=== PATIENT | female | born 1965 | race Hispanic/Latino ===

== ENCOUNTER 2016-11-12 08:35 | Observation (INO) | payer BC ==
[2016-11-12] MEDS ORDERED: Famotidine 20mg/50ml 20 MG/50 ML BAG IV STA (09:17)
[2016-11-12] MEDS ORDERED: Sodium Chloride 0.9% 1,000 ML IV STA ×2 (09:17→12:09)
--- NOTE | 2016-11-12 09:23 | ED PDOC ---
Arrival/HPI - General Chief Complaint: Dizziness/Lightheaded Time Seen by Provider: 11/12/16 09:17 Historian: Patient - History of Present Illness Narrative History of Present Illness (Text): 11/12/16 09:17 Daniela Yu is a 51 year old female, who denies any past medical history and family medical history, who presents to the emergency department complaining of 1 day duration of nausea, diaphoresis, and felling lightheaded which began this morning. Patient denies any chest pain, shortness of breath, dyspnea on exertion, or any other complaints at this time. Time/Duration: 1-3 hours Symptom Onset: Gradual Symptom Course: Unchanged Activities at Onset: Rest Context: Home Past Medical History - Provider Review Nursing Documentation Reviewed: Yes - Psychiatric Hx Substance Use: No Family/Social History - Physician Review Nursing Documentation Reviewed: Yes Family/Social History: No Known Family HX Smoking Status: Never Smoked Hx Alcohol Use: Yes Frequency of alcohol use: Socially Hx Substance Use: No Allergies/Home Meds Allergies/Adverse Reactions: Allergies Penicillins Allergy (Verified 11/12/16 08:44) ANAPHYLAXIS Physical Exam - Physical Exam Narrative Physical Exam (Text): - Review of Systems Constitutional: lightheaded. absent: Fatigue, Weight Change, Fevers Eyes: Normal ENT: Normal Respiratory: Normal absent: SOB, Cough, Sputum Cardiovascular: Normal absent: Chest pain, Palpitations, Syncope Gastrointestinal: Nausea absent: Abdominal pain, Diarrhea, Vomiting Genitourinary: Normal. absent: Dysuria, Frequency, Hematuria Musculoskeletal: Normal. absent: Arthralgias, Back Pain, Neck Pain Skin: Normal Neurological: Normal absent: Focal Weakness Endocrine: Normal Hemo/Lymphatic: Normal Psychiatric: Normal - Physical exam Patient appears age appropriate, speaking full sentences without difficulty. - Systems Exam Head: Present: Atraumatic, Normocephalic Pupils: Present: PERRL Extraocular Muscles: Present: EOMI Conjunctiva: Present: Normal Mouth: Present: Moist Mucous Membranes Neck: Present: Normal Range of Motion. No: MIDLINE TENDERNESS, Paraspinal Tenderness Respiratory/Chest: Present: Clear to Auscultation, Good Air Exchange. No: Respiratory Distress, Accessory Muscle Use, Tachypnic Cardiovascular: Present: Regular Rate and Rhythm, Normal S1, S2, Peripheral Pulses Present. No: Murmurs Abdomen: Present: Normal Bowel Sounds, No: Tenderness, Peritoneal Signs, Rebound, Guarding, Distention Back: Present: Normal Inspection. No: Midline Tenderness, Paraspinal Tenderness Upper Extremity: Present: Normal Inspection. No: Cyanosis, Edema Lower Extremity: Present: Normal Inspection. No: Edema Neurological: Present: GCS=15, Speech Normal, cranial nerves II through XII fully intact with no cerebellar abnormality, neuro-sensory fully intact. No focal neurological deficits. Skin: Present: Warm, Dry, Normal Color. No: Rashes Lymphatic: Present: OX3, NI, NC Psychiatric: Present: Alert, Oriented x 3, Normal Insight, Normal Concentration Vital Signs Reviewed: Yes Vital Signs Temp Pulse Resp BP Pulse Ox 11/12/16 12:11 97.9 F 61 16 118/64 99 11/12/16 08:44 98.4 F 63 16 138/76 99 Temperature: Afebrile Blood Pressure: Normal Pulse: Regular Respiratory Rate: Normal Appearance: Positive for: Well-Appearing, Non-Toxic, Comfortable Pain Distress: None Mental Status: Positive for: Alert and Oriented X 3 Medical Decision Making - Lab Interpretations Lab Results: 11/12/16 10:00 11/12/16 10:00 Lab Results 11/12/16 10:00: Sodium 142, Potassium 4.1, Chloride 107, Carbon Dioxide 25, Anion Gap 14, BUN 16, Creatinine 0.6, Est GFR ( Amer) > 60, Est GFR (Non- Af Amer) > 60, Random Glucose 109, Calcium 9.4, Total Bilirubin 1.1, AST 25, ALT 40, Alkaline Phosphatase 59, Lactate Dehydrogenase 378, Total Creatine Kinase 45, Troponin I < 0.01, Total Protein 7.4, Albumin 4.4, Globulin 3.0, Albumin/Globulin Ratio 1.5 11/12/16 10:00: PT 10.9, INR 1.01, APTT 25.2 11/12/16 10:00: WBC 6.4, RBC 5.32, Hgb 13.5, Hct 40.0, MCV 75.2 L, MCH 25.4, MCHC 33.8, RDW 14.4, Plt Count 267, MPV 11.1 H, Gran % 77.9 H, Lymph % (Auto) 15.7 L, Carver % (Auto) 4.4, Eos % (Auto) 1.7, Baso % (Auto) 0.3, Gran # 4.95, Lymph # 1.0 L, Carver # 0.3, Eos # 0.1, Baso # 0.02 I have reviewed the lab results: Yes - RAD Interpretation Radiology Orders: 11/12/16 09:18 HEAD W/O CONTRAST [CT] Stat 11/12/16 09:19 CHEST PORTABLE [RAD] Stat - Medication Orders Current Medication Orders: Discontinued Medications Aspirin (Aspirin Chewable) 324 mg PO STAT STA Stop: 11/12/16 09:18 Last Admin: 11/12/16 10:12 Dose: 324 mg Famotidine (Pepcid 20mg/50ml Premix) 20 mg in 50 mls @ 100 mls/hr IV STAT STA Stop: 11/12/16 09:46 Last Admin: 11/12/16 10:11 Dose: 100 mls/hr Sodium Chloride (Sodium Chloride 0.9%) 1,000 mls @ 1,000 mls/hr IV .Q1H STA Stop: 11/12/16 10:16 Last Admin: 11/12/16 10:12 Dose: 1,000 mls/hr Sodium Chloride (Sodium Chloride 0.9%) 1,000 mls @ 1,000 mls/hr IV .Q1H STA Stop: 11/12/16 13:08 Last Admin: 11/12/16 13:25 Dose: 1,000 mls/hr Meclizine HCl (Antivert) 50 mg PO STAT STA Stop: 11/12/16 12:44 Last Admin: 11/12/16 13:24 Dose: 50 mg Ondansetron HCl (Zofran Inj) 4 mg IVP STAT STA Stop: 11/12/16 09:18 Last Admin: 11/12/16 10:11 Dose: 4 mg Ondansetron HCl (Zofran Inj) 4 mg IVP STAT STA Stop: 11/12/16 12:10 Last Admin: 11/12/16 13:24 Dose: 4 mg ED OBSERVATION Discharge: Yes Date of observation admission: 11/12/16 Time of observation admission: 09:00 - Observation admission statement Patient is being placed in observation because:: chest pain - Goals of Observation Goals of observation are:: Plan: -- repeat troponins -- EKG -- Chest X-ray -- Head CT w/o contrast -- Urinalysis -- Labs -- Aspirin, Zofran, Pepcid, and IV Fluids -- Reassess and disposition - Progress Note Progress Note: Impression: 51 year old female complaining of 1 day duration nausea, diaphoresis, and feeling lightheaded which began this morning. Differential Diagnosis included but are not limited to: ACS vs. atypical chest pain presentation vs. dehydration vs. gastritis EKG shows NSR at [address]-segment elevations, normal intervals. Interpreted by me. Chest X-ray read and interpreted by me, which shows no cardiomegaly, no pneumothorax, no effusions. pt's HEART score low. 2 sets of cardiac enzymes and an EKG ordered I had a long discussion with patient that our initial evaluation has not shown evidence of a heart attack. Patient verbalized understanding that even if these tests are normal, symptoms may still be a warning sign of a future heart attack and it is very important for patient to arrange outpatient cardiology follow up Patient was agreeable to observation in the emergency room, and understood that this will prolong the length of stay 11/12/16 11:21 CT HEAD WITHOUT CONTRAST: Dictator : Edwin Han MD FINDINGS: HEMORRHAGE:No intracranial hemorrhage. BRAIN:No mass effect or edema. No atrophy or chronic microvascular ischemic changes. VENTRICLES:Unremarkable. No hydrocephalus. CALVARIUM:Unremarkable. PARANASAL SINUSES:Unremarkable as visualized. No significant inflammatory changes. MASTOID AIR CELLS:Unremarkable as visualized. No inflammatory changes. OTHER FINDINGS:None. IMPRESSION: No acute findings 11/12/16 12:44 On reevaluation, patient states that she feels better but is lightheaded and dizzy every time she closes her eyes and lies down. hints exam is negative, no focal neurological deficits. Meclizine ordered as this also may be vertigo. 11/12/16 14:18 Had a long and extensive d/w patient about f/u with a care companion for further workup and testing as well as a primary physician. Explained to patient that although his ER w/u did not show any acute abnormalities, patient still needs further testing which may include an echo, stress test, cardiac cath, or others. repeat EKG with no evolving changes pt states she feels much better after meclizine and her symptoms resolved Pt states she understands to return to the ER right away for new or worsening symptoms or for inability to f/u with PMD or specialist as instructed. Patient states that she fully agrees with and understands discharge instructions. States that she agrees with the plan and disposition. Verbalized and repeated discharge instructions and plan. I have given the patient opportunity to ask any additional questions. EKG shows NSR at [address]-segment elevations, normal intervals. No evolving changes. Interpreted by me. - Scribe Statement The provider has reviewed the documentation as recorded by the Jeremiibaudie Hill Provider Scribe Attestation: All medical record entries made by the Scribe were at my direction and personally dictated by me. I have reviewed the chart and agree that the record accurately reflects my personal performance of the history, physical exam, medical decision making, and the department course for this patient. I have also personally directed, reviewed, and agree with the discharge instructions and disposition. Disposition/Present on Arrival - Present on Arrival Any Indicators Present on Arrival: No History of DVT/PE: No History of Uncontrolled Diabetes: No Urinary Catheter: No History of Decub. Ulcer: No History Surgical Site Infection Following: None - Disposition Have Diagnosis and Disposition been Completed?: Yes Diagnosis: Dizziness Disposition: HOME/ ROUTINE Disposition Time: 09:00 Patient Problems: Current Active Problems Problem Status Onset Dizziness Acute Condition: GOOD
[2016-11-12 10:24] LABS: BASO # 0.02 K/mm3 (0.0-2.0); BASO % 0.3 % (0.0-3.0); EOS # 0.1 (0.0-0.7); EOS % 1.7 % (1.5-5.0); GRAN # 4.95 (1.4-6.5); GRAN % 77.9 % (50.0-68.0); LYMPH % 15.7 % (22.0-35.0); MEAN CELL VOLUME 75.2 fl (80.0-105.0); MEAN CORPUSCULAR HEMOGLOBIN 25.4 pg (25.0-35.0); MEAN CORPUSCULAR HGB CONC 33.8 g/dl (31.0-37.0); MEAN PLATELET VOLUME 11.1 fl (7.0-11.0); MONO # 0.3 (0.1-0.6); MONO % 4.4 % (1.0-6.0); RED CELL DISTRIBUTION WIDTH 14.4 % (11.5-14.5); WHITE BLOOD COUNT 6.4 10^3/ul (4.5-11.0)
[2016-11-12 10:31] LABS: ALB/GLOB RATIO 1.5 (1.1-1.8); ALKALINE PHOSPHATASE 59 U/L (38-133); ALT/SGPT 40 U/L (7-56); AST/SGOT 25 U/L (15-39); BILIRUBIN,TOTAL 1.1 mg/dL (0.2-1.3); BLOOD UREA NITROGEN 16 mg/dL (7-21); CALCIUM 9.4 mg/dL (8.4-10.5); CARBON DIOXIDE 25 mmol/L (21-33); CHLORIDE 107 mmol/L (98-107); GFR AFRICAN-AMERICAN > 60; GLUCOSE,RANDOM 109 mg/dL (70-110); POTASSIUM 4.1 mmol/L (3.6-5.0); SODIUM 142 mmol/L (132-148); TOTAL PROTEIN 7.4 g/dL (5.8-8.3)
[2016-11-12 10:40] LABS: INR 1.01 (0.93-1.08); PARTIAL THROMBOPLASTIN TIME 25.2 Seconds (23.7-30.8)
[2016-11-12 10:44] LABS: TROPONIN I < 0.01 ng/mL
--- NOTE | 2016-11-12 11:03 | CT ---
PROCEDURE: CT HEAD WITHOUT CONTRAST. HISTORY: lightheaded COMPARISON: None available. TECHNIQUE: Axial computed tomography images were obtained through the head/brain without intravenous contrast. Radiation dose: Total exam DLP = 769 mGy-cm. This CT exam was performed using one or more of the following dose reduction techniques: Automated exposure control, adjustment of the mA and/or kV according to patient size, and/or use of iterative reconstruction technique. FINDINGS: HEMORRHAGE: No intracranial hemorrhage. BRAIN: No mass effect or edema. No atrophy or chronic microvascular ischemic changes. VENTRICLES: Unremarkable. No hydrocephalus. CALVARIUM: Unremarkable. PARANASAL SINUSES: Unremarkable as visualized. No significant inflammatory changes. MASTOID AIR CELLS: Unremarkable as visualized. No inflammatory changes. OTHER FINDINGS: None. IMPRESSION: No acute findings
[2016-11-12 12:11] VITALS: TEMP 97.9
[2016-11-12 13:54] LABS: TROPONIN I < 0.01 ng/mL
--- NOTE | 2016-11-12 15:03 | RAD ---
HISTORY: nausea COMPARISON: No prior. FINDINGS: LUNGS: No active pulmonary disease. PLEURA: No significant pleural effusion identified, no pneumothorax apparent. CARDIOVASCULAR: Probable top-normal heart size OSSEOUS STRUCTURES: No significant abnormalities. VISUALIZED UPPER ABDOMEN: Normal. OTHER FINDINGS: None. IMPRESSION: No active disease. No infiltrate
[2016-11-12 17:10] VITALS: BP 120/64; PULSE 69; RESP 18; O2SAT 98
--- NOTE | 2016-11-12 19:09 | CARD ---
APPROVED REPORT EKG Measurement Heart [id number] <Conclusion> Normal sinus rhythm Normal ECG
--- NOTE | 2016-11-12 19:15 | CARD ---
APPROVED REPORT EKG Measurement Heart [id number] <Conclusion> Normal sinus rhythm Normal ECG
== END 2016-11-12 14:21 | disposition home or self-care (01) ==
LOC: ED 08:35 → EROBSV 10:35
PROVIDERS: ADMIT Emergency Medicine; ATTEND Emergency Medicine
DX: R42 Dizziness and giddiness (principal)
CPT/HCPCS: 70450; 71010; 80053; 82550; 83615; 84484; 85025; 85610; 85730; 93005; 96361; 96365; 96375; 96376; 99285; G0378; J2405; J7040

== ENCOUNTER 2018-04-17 07:02 | Outpatient (CLI) | payer BC | END 2018-04-17 07:03 | disposition home or self-care (01) | LOC: RAD 07:02 ==

== ENCOUNTER 2018-05-05 07:09 | Outpatient (CLI) | payer BC | END 2018-05-05 07:10 | disposition home or self-care (01) | LOC: CARDIO 07:09 | DX: I27.20 Pulmonary hypertension, unspecified (principal) ==